=== PATIENT | female | born 1985 | race Caucasian/White ===

== ENCOUNTER 2019-11-16 19:15 | Emergency (ER) | payer OTHER, MEDICAID, SELFPAY ==
[2019-11-16 19:52] VITALS: BP 122/73; PULSE 78; RESP 12; TEMP 36.9; O2SAT 98; BMI 14.8
--- NOTE | 2019-11-16 21:49 | ED_ITS ---
HPI - General Adult General Chief complaint: Abdominal Pain Stated complaint: RAPIDS LOSS OF WEIGHT NO BOWEL MOVEMENT 2 WKS Time Seen by Provider: 11/16/19 20:10 Source: patient Mode of arrival: Ambulatory Limitations: no limitations History of Present Illness HPI narrative: 34F nonsmoker with history of gastroparesis, anxiety and insomnia presents with her father and the chief complaint of weight loss and poor ap petite with failure to thrive. She has been seen multiple times by her PCP in [place] and has many referrals and visits scheduled including a GI procedure tomorrow and mental health consultations. She denies suicidal ideation or homicidal ideation. She is able to perform ADLs and has good insight. She wants help and has good support. She presents here because there was discussion with her PCP that perhaps we could just admit her here and have psychiatric evaluation, GI evaluation more promptly than up in [place]. Also, she states that ED visits are stressful and she had a stress inducing visit at another, larger ED recently so she hoped that coming to a smaller ED might be more pleasant. She denies any new problems. She has no fever, chills, or abdominal pain. Onset (ago): month(s) Related Data Allergies Allergy/AdvReac Type Severity Reaction Status Date / Time ethinyl estradiol Allergy Severe Fever Verified 11/16/19 20:00 [From [facility]o [facility]] norelgestromin Allergy Severe Fever Verified 11/16/19 20:00 [From [facility]] Review of Systems Constitutional Constitutional: Denies chills, Denies fatigue, Denies fever(s), Denies frequent falls, Denies lethargy, Reports poor appetite, Denies weakness and Reports weight loss Eyes Eyes: Denies change in vision, Denies eye discharge, Denies irritation and Denies loss of vision ENT Ears, Nose, Mouth, and Throat: Denies change in voice, Denies dizziness, Denies neck pain, Denies sore throat and Denies throat swelling Cardiovascular Cardiovascular: Denies chest pain, Denies irregular heart rhythm, Denies lightheadedness, Denies palpitations, Denies dyspnea, Denies dyspnea on exertion and Denies orthopnea Respiratory Respiratory: Denies cough, Denies dyspnea, Denies dyspnea on exertion and Denies wheezing Gastrointestinal Gastrointestinal: Denies abdominal pain, Denies change in bowel habits, Denies diarrhea, Denies nausea and Denies vomiting Musculoskeletal Musculoskeletal: Denies neck pain and Denies numbness Integumentary/Breasts Skin/Breast: Denies pruritus, Denies erythema, Denies rash and Denies wounds Neurologic Neurologic: Denies behavioral changes, Denies confusion, Denies dizziness, Denies frequent falls, Denies loss of vision, Denies numbness and Denies weakness Psychiatric Psychiatric: Reports anxiety, Denies behavioral changes, Denies confusion, Denies depression, Denies homicidal ideation and Denies suicidal ideation Endocrine Endocrine: Denies fatigue, Denies flushing and Denies palpitations Hematologic/Lymphatic Hematologic/Lymphatic: Denies easy bruising Allergic/Immunologic Allergic/Immunologic: Denies urticaria, Denies throat swelling and Denies wheezing Patient History Social History Smoking Status: Never smoker Smoking Status: Never smoker Substance Use Type: does not use Exam Narrative Exam Narrative: GENERAL: [34] year old patient appears stated age. Very thin. AOx3. HEAD: Atraumatic. Normocephalic. EYES: Pupils equal round and reactive. Extraocular motions intact. No scleral icterus. No injection or drainage. ENT: Dry mucous membranes. Nose without bleeding, purulent drainage. Throat without erythema, tonsillar hypertrophy or exudate. Airway patent. NECK: Trachea midline. Non tender CARDIOVASCULAR: Regular rate and rhythm without murmurs, gallops, or rubs. RESPIRATORY: Clear to auscultation. Breath sounds equal bilaterally. No wheezes, rales, or rhonchi. GASTROINTESTINAL: Abdomen soft, non-tender, nondistended. EXTREMITIES: No edema or joint tenderness. BACK: Nontender without deformity or crepitance. No flank tenderness. NEURO: AOx3. SKIN: No rash or erythema of visible areas Initial Vital Signs Initial Vital Signs: Vital Signs Temperature 98.4 F 11/16/19 19:52 Pulse Rate 78 11/16/19 19:52 Respiratory Rate 12 11/16/19 19:52 Blood Pressure 122/73 11/16/19 19:52 Pulse Oximetry 98 11/16/19 19:52 Course Course Course Narrative: labs, IV, and fluids ordered very early in visit, but patient initially refused. I spent a significant amount of time discussing options with the patient. Given lack of new symptoms and significant physical exam findings I told her labs and IV with fluids would be absolutely necessary to evaluate for any possible abnormality requiring admission. Furthermore, given lack of SI/HI/or grave disability there would be no indication for contact with DCR, and even if we were to need their assistance we would need to do a medical clearance prior. Patient and father decided to leave without any labs, imaging, or fluids, but changed their mind and re-registered and checked back into the ED. This time she agreed to the plan. After fluids she actually felt better and developed a bit of an appetite, but given it was after midnight I encouraged her to remain NPO given her procedure this morning. There is no indication of diagnosis requiring admission and I strongly encouraged her to make sure she makes it to her appointment later this morning. She and father agree with the plan and understand return precautions. They have had questions answered to their apparent satisfaction. Orders Ordered: ED Orders 11/16/19 20:10 Complete Blood Count AUTO DIFF Stat Comprehensive Metabolic Panel Stat Ketones (Beta-Hydroxybutyrate) Stat Lipase Stat Magnesium Stat 11/16/19 20:11 EKG-12 Lead Stat 11/16/19 22:00 Ictotest Urine Stat Test Urine Stat Urinalysis and Microscopic Stat Urine Culture Stat Discontinued Medications Sodium Chloride (Normal Saline 0.9%) 1,000 mls @ 150 mls/hr IV CONT BREN Last Infusion: 11/17/19 01:46 Dose: 0 mls/hr Documented by: Admin: 11/17/19 00:28 Dose: 1,000 mls/hr Documented by: MATT Vital Signs Vital signs: Vital Signs - 8 hr 11/16/19 19:52 11/16/19 23:51 11/17/19 01:45 Temperature 98.4 F Pulse Rate 78 76 76 Respiratory Rate 12 15 18 Blood Pressure 122/73 118/89 125/72 Pulse Oximetry 98 100 98 Medical Decision Making Lab Data Result diagrams: 11/17/19 00:24 11/17/19 00:24 Labs: Lab Results 11/16/19 11/16/19 11/17/19 Range/Units 22:00 22:00 00:24 WBC 4.5 (4.5-11.0) X10^3/uL RBC 4.82 (4.0-5.2) X10^6/uL Hgb 14.5 (12.0-16.0) g/dL Hct 43.1 (36-46) % MCV 89.5 (80-100) fL MCH 30.1 (26-34) PG MCHC 33.6 (30-36) % RDW 15.1 H (11.6-14.8) % Plt Count 206 (150-400) X10^3/uL Neut % (Auto) 59.0 (50-75) % Lymph % (Auto) 33.0 (25-40) % [place] % (Auto) 6.2 (3-14) % Eos % (Auto) 0.9 L (2-4) % Baso % (Auto) 0.9 (0-2) % Neut # (Auto) 2700 (8105-0731) /uL Lymph # (Auto) 1500 (4651-7735) /uL [place] # (Auto) 300 (0-900) /uL Eos # (Auto) 0 (0-450) /uL Baso # (Auto) 0 (0-100) /uL Sodium (137-145) mmol/L Potassium (3.4-5.1) mmol/L Chloride (98-107) mmol/L Carbon Dioxide (22-32) mmol/L BUN (7-17) mg/dL Creatinine (0.52-1.04) mg/dL Estimated GFR (>60) mL/min BUN/Creatinine Ratio (6-22) Glucose (70-100) mg/dL Calcium (8.4-10.2) mg/dL Magnesium (1.6-2.3) mg/dL Total Bilirubin (0.2-1.3) mg/dL AST (14-36) IU/L ALT (<35) IU/L Alkaline Phosphatase (38-126) U/L Total Protein (6.3-8.2) g/dL Albumin (3.5-5.0) g/dL Globulin (1.7-4.1) g/dL Albumin/Globulin Ratio (1.0-2.8) Lipase (23-300) U/L Urine Color Yellow Urine Appearance Sl cloudy Urine pH 6.0 (4.5-8.0) Ur Specific [place] 1.025 (1.000-1.035) Urine Protein Negative (Negative) Urine Glucose (UA) Negative (Negative) g/dL Urine Ketones Trace H (NEGATIVE) Urine Occult Blood Trace-lysed (Negative) Urine Nitrate Negative (Negative) Urine Bilirubin 1+ H (NEGATIVE) Ur Bilirubin Confirm Negative (Negative) Urine Urobilinogen 0.2 (0.2) E.U./dL Ur Leukocyte Esterase 1+ H (NEGATIVE) Urine RBC 0-1/hpf (0-5/HPF) Urine WBC 10-30/hpf H (0-5/HPF) Ur Squamous Epith Cells 1-5 /hpf (0-5/HPF) Ur Transition Epith Cell 1-5/hpf (0-5/HPF) Ur Renal Epithelial Cell 1-5/hpf H (0-1/HPF) Urine Bacteria Few (2-10) H (None) Hyaline Casts 1-5/lpf (None) Urine Mucus 2+ H (Negative) Ur Culture Indicated? Specimen cultured Urine Test Negative (Negative) Ketones (<0.27) mmol/L 0724/20 Range/Units 00:24 WBC (4.5-11.0) X10^3/uL RBC (4.0-5.2) X10^6/uL Hgb (12.0-16.0) g/dL Hct (36-46) % MCV (80-100) fL MCH (26-34) PG MCHC (30-36) % RDW (11.6-14.8) % Plt Count (150-400) X10^3/uL Neut % (Auto) (50-75) % Lymph % (Auto) (25-40) % [place] % (Auto) (3-14) % Eos % (Auto) (2-4) % Baso % (Auto) (0-2) % Neut # (Auto) (3589-5486) /uL Lymph # (Auto) (7360-1586) /uL [place] # (Auto) (0-900) /uL Eos # (Auto) (0-450) /uL Baso # (Auto) (0-100) /uL Sodium 135 L (137-145) mmol/L Potassium 3.6 (3.4-5.1) mmol/L Chloride 94 L (98-107) mmol/L Carbon Dioxide 27 (22-32) mmol/L BUN 14 (7-17) mg/dL Creatinine 0.62 (0.52-1.04) mg/dL Estimated GFR > 60.0 (>60) mL/min BUN/Creatinine Ratio 22.6 H (6-22) Glucose 84 (70-100) mg/dL Calcium 10.7 H (8.4-10.2) mg/dL Magnesium 2.4 H (1.6-2.3) mg/dL Total Bilirubin 2.3 H (0.2-1.3) mg/dL AST 20 (14-36) IU/L ALT 13 (<35) IU/L Alkaline Phosphatase 39 (38-126) U/L Total Protein 8.2 (6.3-8.2) g/dL Albumin 5.2 H (3.5-5.0) g/dL Globulin 3.0 (1.7-4.1) g/dL Albumin/Globulin Ratio 1.7 (1.0-2.8) Lipase 191 (23-300) U/L Urine Color Urine Appearance Urine pH (4.5-8.0) Ur Specific [place] (1.000-1.035) Urine Protein (Negative) Urine Glucose (UA) (Negative) g/dL Urine Ketones (NEGATIVE) Urine Occult Blood (Negative) Urine Nitrate (Negative) Urine Bilirubin (NEGATIVE) Ur Bilirubin Confirm (Negative) Urine Urobilinogen (0.2) E.U./dL Ur Leukocyte Esterase (NEGATIVE) Urine RBC (0-5/HPF) Urine WBC (0-5/HPF) Ur Squamous Epith Cells (0-5/HPF) Ur Transition Epith Cell (0-5/HPF) Ur Renal Epithelial Cell (0-1/HPF) Urine Bacteria (None) Hyaline Casts (None) Urine Mucus (Negative) Ur Culture Indicated? Urine Test (Negative) Ketones 4.21 H (<0.27) mmol/L Discharge Plan Departure Patient Disposition: Home Clinical Impression: Adult failure to thrive Discharge Date/Time: 11/17/19 01:45 Instructions: DI for Failure to Thrive Activity Restrictions/Additional Instructions: *You have been diagnosed with [failure to thrive, insomnia, gastroparesis] *What to do: * continue to take medications as directed *Follow up with your rolled glass crosscutter tomorrow as planned *Return to ER if you should have any new, worsening or concerning symptoms
[2019-11-16 22:09] LABS: Appearance Urine UA SL CLOUDY; Bilirubin Urine UA 1+ (NEGATIVE); Color Urine UA YELLOW; Glucose Urine UA NEGATIVE (Negative); Ketones Urine UA TRACE (NEGATIVE); Leukocyte Esterase Urine UA 1+ (NEGATIVE); Nitrite Urine UA NEGATIVE (Negative); Occult Blood Urine UA TRACE-LYSED (Negative); Protein Urine UA NEGATIVE (Negative); Specific Gravity Urine UA 1.025 (1.000-1.035); Urobilinogen Urine UA 0.2 E.U./dL (0.2)
[2019-11-16 22:16] LABS: Bacteria Urine Few (2-10); Hyaline Casts Urine 1-5/LPF; Mucus Urine 2+ (Negative); RBC Urine 0-1/HPF (0-5/HPF); Renal Epithelial Cells Urine 1-5/HPF (0-1/HPF); Squamous Epithelial Cell Urine 1-5 /HPF (0-5/HPF); Transitional Epi Cells Urine 1-5/HPF (0-5/HPF); WBC Urine 10-30/HPF (0-5/HPF)
[2019-11-16 22:18] LABS: Culture Indicated Urine Specimen Cultured; Ictotest Urine Negative (Negative); Pregnancy Test Urine Negative (Negative)
[2019-11-16 23:51] VITALS: BP 118/89; PULSE 76; RESP 15; O2SAT 100
--- NOTE | 2019-11-17 00:27 | PC.NURSE ---
Patient decided she wanted to stay and continue evaluation discussed with DR Page. Patient now agreeable to IV/Blood and Fluids.
[2019-11-17] MEDS: SODIUM CHLORIDE 0.9% 1,000 ML 1000 ML IV (00:28)
[2019-11-17 00:33] LABS: Add Manual Diff / Slide Review NO; Basophils Absolute Auto 0 /uL (0-100); Basophils Percent Auto 0.9 % (0-2); Eosinophils Absolute Auto 0 /uL (0-450); Eosinophils Percent Auto 0.9 % (2-4); Hematocrit 43.1 % (36-46); Hemoglobin 14.5 g/dL (12.0-16.0); Lymphocytes Absolute Auto 1500 /uL (1100-4500); Mean Corpuscular HGB Conc 33.6 % (30-36); Mean Corpuscular Hemoglobin 30.1 PG (26-34); Mean Corpuscular Volume 89.5 fL (80-100); Monocytes Absolute Auto 300 /uL (0-900); Monocytes Percent Auto 6.2 % (3-14); Neutrophils Absolute Auto 2700 /uL (1500-7000); Platelet Count 206 X10^3/uL (150-400); Red Blood Cell Count 4.82 X10^6/uL (4.0-5.2); Red Cell Distribution Width 15.1 % (11.6-14.8); White Blood Cell Count 4.5 X10^3/uL (4.5-11.0)
[2019-11-17 00:42] LABS: Alanine Aminotransferase 13 IU/L (<35); Albumin 5.2 g/dL (3.5-5.0); Albumin Globulin Ratio 1.7 (1.0-2.8); Alkaline Phosphatase 39 U/L (38-126); Aspartate Aminotransferase 20 IU/L (14-36); BUN Creatinine Ratio 22.6 (6-22); Bilirubin Total 2.3 mg/dL (0.2-1.3); Blood Urea Nitrogen 14 mg/dL (7-17); Calcium 10.7 mg/dL (8.4-10.2); Carbon Dioxide 27 mmol/L (22-32); Chloride 94 mmol/L (98-107); Estimated Glomerular Filt Rate > 60.0 mL/min (>60); Glucose 84 mg/dL (70-100); HEMOLYSIS < 15 (0-50); Lipase 191 U/L (23-300); Magnesium 2.4 mg/dL (1.6-2.3); Potassium 3.6 mmol/L (3.4-5.1); Sodium 135 mmol/L (137-145); Total Protein 8.2 g/dL (6.3-8.2)
[2019-11-17 00:45] LABS: Ketones (Beta-Hydroxybutyrate) 4.21 mmol/L (<0.27)
[2019-11-17 01:45] VITALS: BP 125/72; PULSE 76; RESP 18; O2SAT 98
== END 2019-11-17 01:45 | disposition home or self-care (01) ==
PROVIDERS: Emergency Provider Emergency Medicine
DX: R62.7 Adult failure to thrive (principal); R63.4 Abnormal weight loss; F41.9 Anxiety disorder, unspecified
CPT/HCPCS: 36415; 80053; 81001; 81025; 82009; 83690; 83735; 85025; 87077; 87086; 93005; 96360; 99284

== ENCOUNTER → 2021-04-02 12:09 | Outpatient (CLI) | payer OTHER, MEDICAID, SELFPAY ==
[2021-04-02 19:41] LABS: Add Manual Diff / Slide Review NO; Basophils Absolute Auto 0 /uL (0-100); Basophils Percent Auto 0.7 % (0-2); Eosinophils Absolute Auto 0 /uL (0-450); Eosinophils Percent Auto 0.5 % (2-4); Hematocrit 37.5 % (36-46); Hemoglobin 12.4 g/dL (12.0-16.0); Lymphocytes Absolute Auto 900 /uL (1100-4500); Lymphocytes Percent Auto 32.5 % (25-40); Mean Corpuscular HGB Conc 33.2 % (30-36); Mean Corpuscular Hemoglobin 29.4 PG (26-34); Mean Corpuscular Volume 88.8 fL (80-100); Monocytes Absolute Auto 200 /uL (0-900); Monocytes Percent Auto 6.5 % (3-14); Neutrophils Absolute Auto 1700 /uL (1500-7000); Neutrophils Percent Auto 59.8 % (50-75); Platelet Count 176 X10^3/uL (150-400); Red Blood Cell Count 4.23 X10^6/uL (4.0-5.2); Red Cell Distribution Width 13.6 % (11.6-14.8); White Blood Cell Count 2.9 X10^3/uL (4.5-11.0)
[2021-04-02 19:51] LABS: Alanine Aminotransferase 13 IU/L (<35); Albumin 4.4 g/dL (3.5-5.0); Albumin Globulin Ratio 1.7 (1.0-2.8); Alkaline Phosphatase 35 U/L (38-126); Aspartate Aminotransferase 22 IU/L (14-36); BUN Creatinine Ratio 11.4 (6-22); Bilirubin Total 0.3 mg/dL (0.2-1.3); Blood Urea Nitrogen 10 mg/dL (7-17); Calcium 9.4 mg/dL (8.4-10.2); Carbon Dioxide 29 mmol/L (22-32); Chloride 101 mmol/L (98-107); Estimated Glomerular Filt Rate > 60.0 mL/min (>60); Globulin 2.6 g/dL (1.7-4.1); Glucose 91 mg/dL (70-100); HEMOLYSIS < 15 (0-50); Potassium 4.2 mmol/L (3.4-5.1); Sodium 140 mmol/L (137-145)
[2021-04-02 20:24] LABS: Erythrocyte Sedimentation Rate 7 MM/HR (0-20)
[2021-04-02 20:29] LABS: Vitamin D 25 Hydroxy (D3) 43.5 ng/mL (30.0-100.0)
[2021-04-02 20:39] LABS: Vitamin B12 901 pg/mL (239-931)
[2021-04-02 20:42] LABS: TSH w/ Reflex to FT4 1.01 uIU/mL (0.47-4.68)
[2021-04-04 16:52] LABS: ANA Screen, IFA Negative (.)
== END ==
PROVIDERS: PCP Physician Assistant; Referring Provider Physician Assistant; Visit Provider Physician Assistant
DX: R53.82 Chronic fatigue, unspecified (principal)
CPT/HCPCS: 80053; 82306; 82607; 84443; 85025; 85651; 86038

== ENCOUNTER → 2021-04-30 08:57 | Outpatient (CLI) | payer OTHER, MEDICAID, SELFPAY ==
[2021-04-30 20:20] LABS: COVID19 - ORCAS (NP or Nasal) Negative (Negative)
== END ==
PROVIDERS: PCP Physician Assistant; Visit Provider Physician Assistant
DX: Z20.822 Contact with and (suspected) exposure to COVID-19 (principal)
CPT/HCPCS: U0003

== ENCOUNTER → 2021-05-07 13:33 | Outpatient (CLI) | payer OTHER, MEDICAID, SELFPAY ==
[2021-05-07 18:58] LABS: Hematocrit 35.4 % (36-46); Hemoglobin 11.5 g/dL (12.0-16.0); Mean Corpuscular HGB Conc 32.5 % (30-36); Mean Corpuscular Volume 89.1 fL (80-100); Red Blood Cell Count 3.97 X10^6/uL (4.0-5.2); Red Cell Distribution Width 13.4 % (11.6-14.8); White Blood Cell Count 5.8 X10^3/uL (4.5-11.0)
[2021-05-07 19:55] LABS: Neutrophils Absolute Manual 3886 /uL (3000-5900); Platelet Count 190 X10^3/uL (150-400); RBC Morphology Normal Morphology; Total Cells Counted 100
== END ==
PROVIDERS: PCP Physician Assistant; Referring Provider Physician Assistant; Visit Provider Physician Assistant
DX: R53.82 Chronic fatigue, unspecified (principal)
CPT/HCPCS: 85025; 86617

== ENCOUNTER → 2021-11-11 11:40 | Outpatient (CLI) | payer OTHER, MEDICAID, SELFPAY ==
[2021-11-11 20:32] LABS: Add Manual Diff / Slide Review NO; Basophils Absolute Auto 100 /uL (0-100); Basophils Percent Auto 2.5 % (0-2); Eosinophils Absolute Auto 0 /uL (0-450); Eosinophils Percent Auto 1.4 % (2-4); Hematocrit 37.3 % (36-46); Hemoglobin 12.3 g/dL (12.0-16.0); Lymphocytes Absolute Auto 1300 /uL (1100-4500); Lymphocytes Percent Auto 38.6 % (25-40); Mean Corpuscular HGB Conc 32.8 % (30-36); Mean Corpuscular Hemoglobin 29.7 PG (26-34); Mean Corpuscular Volume 90.4 fL (80-100); Monocytes Absolute Auto 200 /uL (0-900); Monocytes Percent Auto 6.3 % (3-14); Neutrophils Absolute Auto 1800 /uL (1500-7000); Neutrophils Percent Auto 51.2 % (50-75); Platelet Count 208 X10^3/uL (150-400); Red Blood Cell Count 4.13 X10^6/uL (4.0-5.2); Red Cell Distribution Width 13.7 % (11.6-14.8); White Blood Cell Count 3.4 X10^3/uL (4.5-11.0)
[2021-11-11 20:42] LABS: HEMOLYSIS < 15 (0-50); Iron 155 ug/dL (37-170)
[2021-11-11 20:54] LABS: Percent Iron Saturation 49 % (15-50); Total Iron Binding Capacity 318 ug/dL (265-497); Transferrin 246 mg/dL (206-381)
[2021-11-11 20:56] LABS: Erythrocyte Sedimentation Rate 6 MM/HR (0-20)
[2021-11-11 22:46] LABS: Alanine Aminotransferase 14 IU/L (<35); Albumin 4.5 g/dL (3.5-5.0); Albumin Globulin Ratio 1.8 (1.0-2.8); Alkaline Phosphatase 39 U/L (38-126); Aspartate Aminotransferase 23 IU/L (14-36); BUN Creatinine Ratio 11.4 (6-22); Bilirubin Total 0.8 mg/dL (0.2-1.3); Blood Urea Nitrogen 8 mg/dL (7-17); Calcium 9.5 mg/dL (8.4-10.2); Carbon Dioxide 31 mmol/L (22-32); Chloride 102 mmol/L (98-107); Estimated Glomerular Filt Rate > 60 mL/min (>60); Globulin 2.5 g/dL (1.7-4.1); Glucose 66 mg/dL (70-100); HEMOLYSIS < 15 (0-50); Sodium 139 mmol/L (137-145)
[2021-11-11 23:34] LABS: Vitamin B12 755 pg/mL (239-931)
[2021-11-12 12:43] LABS: Folate 17.9 ng/mL (2.76-20.0)
[2021-11-13 18:07] LABS: Zinc 79 ug/dL (44-115)
== END ==
PROVIDERS: PCP Physician Assistant; Visit Provider Internal Medicine
DX: D64.9 Anemia, unspecified (principal); D72.810 Lymphocytopenia
CPT/HCPCS: 80053; 82607; 82746; 83540; 83550; 84630; 85025; 85651; 88184

== ENCOUNTER 2023-03-29 10:46 | Emergency (ER) | payer OTHER, MEDICAID, SELFPAY ==
[2023-03-29 10:54] VITALS: BP 127/84; PULSE 97; RESP 16; TEMP 36.9; O2SAT 100; BMI 21.7
--- NOTE | 2023-03-29 11:00 | DI.CT.S_ITS ---
PROCEDURE: CT HEAD/BRAIN WO CON INDICATIONS: fall 03/18. Dizzy, headache TECHNIQUE: Noncontrast 4.5 mm thick angled axial sections acquired from the foramen magnum to the vertex, with coronal and sagittal reformats. For radiation dose reduction, the following was used: automated exposure control, adjustment of mA and/or kV according to patient size. COMPARISON: None. FINDINGS: Image quality: Excellent. CSF spaces: Basal cisterns are patent. No extra-axial fluid collections. Ventricles are normal in size and shape. Brain: No midline shift. No intracranial masses or hemorrhage. Rico-white matter interface is normal. Skull and face: Calvarium and visualized facial bones are intact, without suspicious lesions. Sinuses: Visualized sinuses and mastoids are clear. IMPRESSION: No acute process. Dictated by: Roebrto Bryant M.D. on 03/29/2023 at 11:48 Approved by: Roberto Bryant M.D. on 03/29/2023 at 11:48
--- NOTE | 2023-03-29 11:00 | DI.CT.S_ITS ---
PROCEDURE: CT CERVICAL SPINE WO CON INDICATIONS: fall 03/18. Dizzy, headache TECHNIQUE: Noncontrast 3 mm thick sections acquired from the skull base to the T4 level. Sagittal and coronal reformats were then constructed. For radiation dose reduction, the following was used: automated exposure control, adjustment of mA and/or kV according to patient size. COMPARISON: None. FINDINGS: Image quality: Excellent. Bones: No fractures or dislocations. Visualized superior ribs are intact. Soft tissues: Prevertebral soft tissues are normal in thickness. No paravertebral hematomas. No apical pneumothoraces. IMPRESSION: No acute fracture. No osseous lesion. If symptoms and/or clinical suspicion for pathology persist, further assessment with MRI or bone scan may be helpful for further assessment. Dictated by: Roberto Bryatn M.D. on 03/29/2023 at 11:49 Approved by: Roberto Bryant M.D. on 03/29/2023 at 11:50
[2023-03-29 11:32] VITALS: BP 140/79
--- NOTE | 2023-03-29 12:25 | ED.HEATRA ---
HPI - Head Injury <Lanette Jackson PA-C - Last Filed: 03/29/23 12:47> General Chief complaint: Head Injury Stated complaint: fell and hit head on 03/18 Time Seen by Provider: 03/29/23 11:09 Source: patient Mode of arrival: Ambulatory History of Present Illness HPI Narrative: 37-year-old female presents to the ED with 10 days of postconcussion symptoms following a head injury sustained 10 days ago. Patient states that she [place] a bridge when she sustained a mechanical slip and fall injury causing her to land on the floor, striking the back of her head. No lacerations. Since then, patient states that she has been suffering headache, nausea, neck pain, sporadic lightheadedness, trouble focusing when reading, fatigued, trouble sleeping at night. Patient's PCP recommended that patient get scans in the ED today. Patient denies fever, chills, chest pain, shortness of breath, loss of consciousness, changes in vision. Related Data Previous Rx's Medication Instructions Recorded ascorbate calcium (vitamin C) 500 500 mg PO DAILY #90 tabs 05/13/21 mg tablet ferrous sulfate 325 mg (65 mg 325 mg PO DAILY #90 tabs 05/13/21 iron) tablet nirmatrelvir 300 mg (150 mg See Rx Instructions PO .COMPLEX 03/30/22 x2)-ritonavir 100 mg tablet,dose #30 ea pack (Paxlovid) Allergies Allergy/AdvReac Type Severity Reaction Status Date / Time ethinyl estradiol Allergy Severe Fever Verified 03/29/23 10:59 [From [facility]o [facility]] norelgestromin Allergy Severe Fever Verified 03/29/23 10:59 [From [facility]] Review of Systems <Lanette Jackson PA-C - Last Filed: 03/29/23 12:47> Constitutional Constitutional: Denies chills, Reports daytime sleepiness, Reports difficulty sleeping, Reports fatigue, Denies fever(s), Denies frequent falls, Reports headache(s), Denies lethargy and Denies weakness Eyes Eyes: Denies change in vision, Denies eye discharge, Denies irritation, Denies loss of vision and Reports photophobia ENT Ears, Nose, Mouth, and Throat: Denies change in voice, Denies dizziness, Reports headache(s), Reports neck pain, Denies sore throat and Denies throat swelling Cardiovascular Cardiovascular: Denies chest pain, Denies irregular heart rhythm, Denies lightheadedness, Denies palpitations, Denies dyspnea, Denies dyspnea on exertion and Denies orthopnea Respiratory Respiratory: Denies cough, Denies dyspnea, Denies dyspnea on exertion and Denies wheezing Gastrointestinal Gastrointestinal: Denies abdominal pain, Denies change in bowel habits, Denies diarrhea, Reports nausea and Denies vomiting Musculoskeletal Musculoskeletal: Reports neck pain and Denies numbness Integumentary/Breasts Skin/Breast: Denies pruritus, Denies erythema, Denies rash and Denies wounds Neurologic Neurologic: Denies behavioral changes, Denies confusion, Denies dizziness, Denies frequent falls, Reports headache(s), Denies loss of vision, Denies numbness and Denies weakness Psychiatric Psychiatric: Denies anxiety, Denies behavioral changes, Denies confusion, Denies depression, Denies homicidal ideation and Denies suicidal ideation Endocrine Endocrine: Reports fatigue, Denies flushing and Denies palpitations Hematologic/Lymphatic Hematologic/Lymphatic: Denies easy bruising Allergic/Immunologic Allergic/Immunologic: Denies urticaria, Denies throat swelling and Denies wheezing Patient History <Lanette Jakcson PA-C - Last Filed: 03/29/23 12:47> Medical History Fara Rogers infection Surgical History Anesthesia History of colposcopy (~2007) [place] teeth removed (~2006) Family History Brother CLL (chronic lymphocytic leukemia) Grandfather History of heart disease Stroke Grandmother Ovarian cancer Social History Smoking Status: Former smoker Smoking Status: Former smoker alcohol intake frequency: other Substance Use Type: marijuana Exam <aLnette Jackson PA-C - Last Filed: 03/29/23 12:47> Narrative Exam Narrative: Const General:?cooperative, healthy appearing and comfortable [facility] Head:?normal to inspection Ears:?hearing grossly normal bilaterally Nose:?external nose normal Face and sinus:?normal facial exam and sinuses nontender Mouth:?oral mucosae normal Throat:?posterior oropharynx normal Eyes General:?appearance normal, both eyes and all related structures Neck Neck:?normal visual inspection and no lymphadenopathy noted Resp Effort & Inspection:?normal respiratory effort Auscultation:?clear to auscultation bilaterally Cardio Rate:?regular rate Rhythm:?regular rhythm Neuro General:?patient alert, patient awake and patient oriented x3; PERRLA; CN 1 through 12 intact bilaterally; gait is normal; neurologically intact Initial Vital Signs Initial Vital Signs: Vital Signs Temperature 98.5 F 03/29/23 10:54 Pulse Rate 97 H 03/29/23 10:54 Respiratory Rate 16 03/29/23 10:54 Blood Pressure 127/84 03/29/23 10:54 Pulse Oximetry 100 03/29/23 10:54 Oxygen Delivery Method Room Air 03/29/23 10:54 <Ester Salcedo DO - Last Filed: 03/30/23 08:29> Initial Vital Signs Initial Vital Signs: Vital Signs Temperature 98.5 F 03/29/23 10:54 Pulse Rate 97 H 03/29/23 10:54 Respiratory Rate 16 03/29/23 10:54 Blood Pressure 127/84 03/29/23 10:54 Pulse Oximetry 100 03/29/23 10:54 Oxygen Delivery Method Room Air 03/29/23 10:54 Course <Lanette Jackson PA-C - Last Filed: 03/29/23 12:47> Orders Ordered: Discontinued Medications Ketorolac Tromethamine (Ketorolac 30 Mg/Ml Vial) 30 mg IM NOW ONE Stop: 03/29/23 12:36 Last Admin: 03/29/23 12:47 Dose: 30 mg Documented By: ANGEL Vital Signs Vital signs: Vital Signs - 8 hr 03/29/23 10:54 03/29/23 11:32 Temperature 98.5 F Pulse Rate 97 H Respiratory Rate 16 Blood Pressure 127/84 140/79 Pulse Oximetry 100 Oxygen Delivery Method Room Air <Ester Salcedo DO - Last Filed: 03/30/23 08:29> Orders Ordered: Discontinued Medications Ketorolac Tromethamine (Ketorolac 30 Mg/Ml Vial) 30 mg IM NOW ONE Stop: 03/29/23 12:36 Last Admin: 03/29/23 12:47 Dose: 30 mg Documented By: ES Vital Signs Vital signs: Vital Signs - 8 hr 03/29/23 10:54 03/29/23 11:32 Temperature 98.5 F Pulse Rate 97 H Respiratory Rate 16 Blood Pressure 127/84 140/79 Pulse Oximetry 100 Oxygen Delivery Method Room Air MDM - Head Injury <Lanette Jackson PA-C - Last Filed: 03/29/23 12:47> MDM Narrative Medical decision making narrative: 37-year-old female presents to the ED with 10 days of postconcussion symptoms following a head injury sustained [address] head and CT C-spine with no acute findings. Patient's symptoms appear to be from postconcussion syndrome. Counseled patient on concussion, symptoms, management. Recommend cognitive and physical rest. Will give ketorolac for headache. Recommend continued use of ibuprofen, Tylenol at home. Recommend follow-up with PCP until symptom resolution. ED return precautions discussed with patient. Patient verbalized understanding. Medical records reviewed: Yes Discharge Plan Departure Patient Disposition: Home Clinical Impression: Postconcussion syndrome Instructions: Concussion Activity Restrictions/Additional Instructions: You were evaluated in the ED today for concussion symptoms following a head injury. Your CT scans did not show any fractures or dislocations or brain bleeds. It appears that your symptoms are from a concussion following the head injury you sustained 10 days ago. Common symptoms from a concussion include headache, nausea, sporadic vomiting, fatigue, sleepiness, depression, agitation, trouble concentrating. These symptoms can last for several days to weeks. Please follow-up with your PCP so they can follow your symptoms to resolution. Please continue to stay well hydrated, eat a healthy diet. We recommend physical and cognitive rest following a concussion. You may take Tylenol, ibuprofen for the headache. Return to the ED if you have worsening symptoms, persistent vomiting. Prescriptions: No Action ferrous sulfate 325 mg (65 mg iron) tablet 325 mg PO DAILY Qty: 90 0RF ascorbate calcium (vitamin C) 500 mg tablet 500 mg PO DAILY Qty: 90 0RF Paxlovid 300 mg (150 mg x 2)-100 mg tablets,dose pack See Rx Instructions PO .COMPLEX Qty: 30 0RF Rx Instructions: take TWO 150 mg tablets of nirmatrelvir with ONE 100 mg tablet of ritonavir twice daily for 5 days PO Referrals: Madelaine Gilbert PA-C [Primary Care Provider] - Stand Alone Forms: Patient Portal/API ED Sign-out <Ester Salcedo DO - Last Filed: 03/30/23 08:29> Cosign ED Attending Cosignature Attestation: I was immediately available in the department for consultation.
[2023-03-29] MEDS: KETOROLAC 30 MG/ML VIAL IM (12:47)
== END 2023-03-29 12:51 | disposition home or self-care (01) ==
PROVIDERS: Emergency Provider Student in an Organized Health Care Education/Training Program; PCP Physician Assistant
DX: S09.90XA Unspecified injury of head, initial encounter (principal); F07.81 Postconcussional syndrome; W01.0XXA Fall on same level from slipping, tripping and stumbling without subsequent striking against object, initial encounter
CPT/HCPCS: 70450; 72125; 96372; 99283; J1885

== ENCOUNTER → 2023-07-06 14:14 | Outpatient (CLI) | payer OTHER, MEDICAID, SELFPAY ==
[2023-07-06 19:14] LABS: Add Manual Diff / Slide Review NO; Basophils Absolute Auto 0 /uL (0-100); Basophils Percent Auto 0.6 % (0-2); Eosinophils Absolute Auto 100 /uL (0-450); Eosinophils Percent Auto 1.1 % (2-4); Hematocrit 36.3 % (36-46); Hemoglobin 12.3 g/dL (12.0-16.0); Lymphocytes Absolute Auto 1600 /uL (1100-4500); Lymphocytes Percent Auto 23.7 % (25-40); Mean Corpuscular HGB Conc 33.9 % (30-36); Mean Corpuscular Hemoglobin 30.7 PG (26-34); Mean Corpuscular Volume 90.6 fL (80-100); Monocytes Absolute Auto 300 /uL (0-900); Monocytes Percent Auto 4.2 % (3-14); Neutrophils Absolute Auto 4700 /uL (1500-7000); Neutrophils Percent Auto 70.4 % (50-75); Platelet Count 186 X10^3/uL (150-400); Red Cell Distribution Width 13.7 % (11.6-14.8); White Blood Cell Count 6.7 X10^3/uL (4.5-11.0)
[2023-07-06 19:34] LABS: Alanine Aminotransferase 12 IU/L (<35); Albumin Globulin Ratio 1.6 (1.0-2.8); Alkaline Phosphatase 45 U/L (38-126); Aspartate Aminotransferase 18 IU/L (14-36); Bilirubin Total 0.7 mg/dL (0.2-1.3); Blood Urea Nitrogen 12 mg/dL (7-17); Calcium 9.4 mg/dL (8.4-10.2); Carbon Dioxide 26 mmol/L (22-32); Chloride 106 mmol/L (98-107); Estimated Glomerular Filt Rate > 60 mL/min (>60); Globulin 2.5 g/dL (1.7-4.1); Glucose 110 mg/dL (70-100); HEMOLYSIS < 15 (0-50); Potassium 3.9 mmol/L (3.4-5.1); Sodium 137 mmol/L (137-145); Total Protein 6.5 g/dL (6.3-8.2)
[2023-07-06 19:44] LABS: HEMOLYSIS < 15 (0-50); Iron 130 ug/dL (37-170)
[2023-07-06 19:46] LABS: Progesterone, Total 8.35 ng/mL
[2023-07-06 20:00] LABS: Percent Iron Saturation 46 % (15-50); Total Iron Binding Capacity 284 ug/dL (265-497); Transferrin 227 mg/dL (206-381)
[2023-07-06 20:05] LABS: Ferritin 39 ng/mL (6-137)
[2023-07-06 21:09] LABS: Free T3, Triiodothyronine Free 3.36 pg/mL (2.77-5.27); Free T4, Direct Thyroxine 1.17 ng/dL (0.78-2.19)
[2023-07-06 21:22] LABS: Thyroid Stimulating Hormone 1.62 uIU/mL (0.47-4.68)
[2023-07-09 00:10] LABS: Thyroid Peroxidase Antibodies 13 IU/mL (0-34)
[2023-07-09 09:47] LABS: EBV Virus IgM Ab < 36.0 U/mL (0.0-35.9)
[2023-07-09 20:15] LABS: Anti Thyroglobulin Antibody <1.0 IU/mL (0.0-0.9)
[2023-07-18 13:46] LABS: Triiodothyronine T3 Reverse 15.6
== END ==
PROVIDERS: PCP Physician Assistant Medical; Visit Provider Naturopath
DX: G47.00 Insomnia, unspecified (principal); R79.89 Other specified abnormal findings of blood chemistry; B27.09 Gammaherpesviral mononucleosis with other complications; R53.82 Chronic fatigue, unspecified; U09.9 Post COVID-19 condition, unspecified; R79.9 Abnormal finding of blood chemistry, unspecified
CPT/HCPCS: 80053; 82728; 83540; 83550; 84144; 84439; 84443; 84481; 84482; 85025; 86376; 86664; 86665; 86800

== ENCOUNTER → 2023-09-30 09:27 | Outpatient (CLI) | payer OTHER, MEDICAID, SELFPAY ==
--- NOTE | 2023-09-30 09:29 | DI.US.S_ITS ---
LIMITED ULTRASOUND OF RIGHT BREAST: 09/30/2023 CLINICAL: Palpable right breast lump. Comparison is made to exam dated: 09/30/2023 mammogram - [facility]. Real-time ultrasound of the right breast 10 o'clock region was performed. Rico scale images of the real-time examination were reviewed. No significant abnormalities were seen sonographically in the right breast. IMPRESSION: NEGATIVE There is no sonographic evidence of malignancy. There is no abnormality seen in the right breast to correspond with the area of clinical concern, however, clinical correlation and clinical followup are recommended. Return to annual mammogram screening schedule is recommended at age 40 or sooner depending on risk assessment. For either breast, if there is a new or enlarging palpable finding, recommend reimaging with diagnostic mammogram and targeted ultrasound. This exam was interpreted at Station ID: [id number]. Electronically Signed By: Geoffrey Lechuga M.D. lc/:09/30/2023 11:24:14 letter sent: Clinical Evaluation Ultrasound BI-RADS: 1 Negative
--- NOTE | 2023-09-30 09:29 | DI.MG.S_ITS ---
BILATERAL DIGITAL DIAGNOSTIC MAMMOGRAM 3D/2D: 09/30/2023 CLINICAL: Diffuse cystic myopathy of bilateral breasts. Baseline exam. Comparison is made to exams dated: 09/30/2023 ultrasound and 09/30/2023 ultrasound - [facility]. Both breasts are extremely dense, which lowers the sensitivity of mammography (category d />75% glandular tissue). No significant masses, calcifications, or other findings are seen in either breast. IMPRESSION: INCOMPLETE: NEEDS ADDITIONAL IMAGING EVALUATION There is no abnormality seen in either breast to correspond with the areas of clinical concern in the UOQs, however, ultrasound is recommended. Based on the Tyrer Cuzick model (a risk assessment model) the patient's lifetime risk is 14.0% and her 10 year risk is 1.3%. According to the ACR, ACS, and NCCN guidelines, an annual breast MRI exam along with mammogram is recommended if the patient's lifetime risk is 20% or greater. This exam was interpreted at Station ID: [id number]. NOTE: For mammograms, a report in lay terms will be sent to the patient. Approximately 15% of breast malignancies will not be visualized mammographically. In the management of a palpable breast mass, a negative mammogram must not discourage biopsy of a clinically suspicious lesion. Electronically Signed By: Geoffrey Lechuga M.D. lc/:09/30/2023 11:22:19 ACR BI-RADS Category 0: Incomplete 3340F
--- NOTE | 2023-09-30 09:29 | DI.US.S_ITS ---
PROCEDURE: US BREAST LT LIMITED COMPARISON: None. INDICATIONS: ABNORMAL MAMMO FINDINGS: IMPRESSION: Dictated by: Geoffrey Lechuga M.D. on 09/30/2023 at 11:24 Approved by: Geoffrey Lechuga M.D. on 09/30/2023 at 11:24
--- NOTE | 2023-09-30 09:29 | DI.US.S_ITS ---
PROCEDURE: US THYROID INDICATIONS: F/U NODULES TECHNIQUE: Real-time scanning was performed of the thyroid gland, with image documentation. COMPARISON: None. FINDINGS: Thyroid: Right lobe measures 6.0 x 1.7 x 1.9 cm. Left lobe measures 5.5 x 1.2 x 1.8 cm. Isthmus is 0.3 cm thick. Echotexture is heterogeneous. Multiple tiny hypodense nodules/cysts seen in the bilateral thyroid lobes that do not meet TI-RADS criteria for follow-up. IMPRESSION: Heterogeneous thyroid gland with several tiny/small hypoechoic nodules/cysts which do not meet consensus criteria for follow-up. Dictated by: Piyush Wei M.D. on 09/30/2023 at 16:08 Approved by: Piyush Wei M.D. on 09/30/2023 at 16:12
--- NOTE | 2023-09-30 11:14 | DI.US.S_ITS ---
Patient Name: KOURTNEY LION date: 1985 Sex: F Attending Physician: Amanuel Indications: Date: 09/30/2023 11:24 At the request of: CARMEN SAENZ Procedure: US breast LT limited LIMITED ULTRASOUND OF LEFT BREAST: 09/30/2023 CLINICAL: Palpable left breast lump. Comparison is made to exam dated: 09/30/2023 mammogram - [facility]. Real-time ultrasound of the left breast 2 o'clock region was performed. Rico scale images of the realtime examination were reviewed. No significant abnormalities were seen sonographically in the left breast. IMPRESSION: NEGATIVE There is no sonographic evidence of malignancy. There is no abnormality seen in the left breast to correspond with the area of clinical concern, however, clinical correlation and clinical followup are recommended. This exam was interpreted at Station ID: [id number]. Electronically Signed By: Geoffrey Lechuga M.D. lc/:09/30/2023 11:24:52 Ultrasound BI-RADS: 1 Negative
== END ==
LOC: MAMMO 09:28
PROVIDERS: PCP Physician Assistant; Referring Provider Physician Assistant; Visit Provider Physician Assistant
DX: R92.2 Inconclusive mammogram (principal); N60.11 Diffuse cystic mastopathy of right breast; N60.12 Diffuse cystic mastopathy of left breast; R92.343 Mammographic extreme density, bilateral breasts; E04.1 Nontoxic single thyroid nodule
CPT/HCPCS: 76536; 76642; 77066; G0279